=== PATIENT | female | born 1960 | race Caucasian/White ===

== ENCOUNTER → 2021-07-24 | Outpatient (CLI) | payer BC | LOC: SJCVCIMAG 09:19 | PROVIDERS: ATTEND Internal Medicine Cardiovascular Disease | DX: I31.3 Pericardial effusion (noninflammatory) (principal); R94.31 Abnormal electrocardiogram [ECG] [EKG]; D69.2 Other nonthrombocytopenic purpura; R01.1 Cardiac murmur, unspecified; Z88.0 Allergy status to penicillin; Z72.89 Other problems related to lifestyle ==